=== PATIENT | female | born 1990 | race American Indian/Alaskan Native ===

== ENCOUNTER 2016-04-11 17:26 | Emergency (ER) | payer SELFPAY ==
[2016-04-11 17:46] VITALS: BP 155/105
== END 2016-04-12 01:23 | disposition left against medical advice (07) ==
LOC: ED 17:26
DX: Z04.3 Encounter for examination and observation following other accident (principal); Z53.21 Procedure and treatment not carried out due to patient leaving prior to being seen by health care provider